=== PATIENT | female | born 1960 | race Hispanic/Latino ===

== ENCOUNTER → 2017-07-06 | Outpatient (CLI) | payer OTHER ==
[~2017-07-06] MED LIST: FORTAMET500 MG PO; LIPITOR20 MG PO; NAPROXEN500 MG PO
== END ==
LOC: MAMMO 09:04
PROVIDERS: ATTEND Internal Medicine
DX: Z12.31 Encounter for screening mammogram for malignant neoplasm of breast (principal)
CPT/HCPCS: G0202